=== PATIENT | female | born 1975 | race Caucasian/White ===

== ENCOUNTER 2019-04-27 10:32 | Emergency (ER) | payer OTHER ==
[~2019-04-27] VITALS: Ht 165.1 cm; Wt 175.0 kg
[2019-04-27] MEDS ORDERED: IV NORMAL SALINE 1,000ML 1,000 ML IV SCH (10:46)
[2019-04-27] MEDS ORDERED: HYDROmorphone PF 1 MG/ML DISP.SYRIN IV ONE (11:00)
[2019-04-27] MEDS ORDERED: diphenhydrAMINE 50 MG/ML VIAL IVP ONE (11:00)
[2019-04-27] MEDS ORDERED: METOCLOPRAMIDE HCL 10 MG/2 ML VIAL. IVP ONE (11:00)
[2019-04-27] MEDS ORDERED: SUMAtriptan SUCC 6 MG/0.5 ML VIAL SQ ONE (11:00)
--- NOTE | 2019-04-27 11:17 | PHYS DOC ---
Past History Past Medical History: Anxiety, Hypertension, Migraines Past Surgical History: Cholecystectomy, Hysterectomy Alcohol Use: Rarely Drug Use: None Adult General Chief Complaint Chief Complaint: HEADACHE HPI HPI Patient is a 44-year-old female who presents with complaint of headache for the last 4 days. Patient states that headache is one of her typical migraines but she has not been able to get the headache to resolve with her typical medications. She is on Topamax for her migraines and has also taken 3 Maxalt in the last 4 days. Patient rates her pain to be an 8-9 out of 10. She indicates that this is not her worst headache ever. She does indicate that she has nausea and has been gagging but has had no vomiting. She denies any chest pain or shortness breath. She also denies any fever. Headache is worsened with change of position. She also has photophobia.[] Review of Systems Review of Systems Constitutional: Denies fever or chills [] Eyes: Denies change in visual acuity, redness, or eye pain [] Respiratory: Denies cough or shortness of breath [] Cardiovascular: No additional information not addressed in HPI [] Integument: Denies rash or skin lesions [] Neurologic: Complains of headache without focal weakness or sensory changes [] All other systems were reviewed and found to be within normal limits, except as documented in this note. Current Medications Current Medications Current Medications Medications (Trade) Dose Ordered Sig/John Start Time Stop Time Status Last Admin Dose Admin Diphenhydramine HCl (Benadryl) 25 mg 1X ONCE 04/27/19 11:00 04/27/19 11:01 DC 04/27/19 11:01 25 MG Hydromorphone HCl (Dilaudid) 1 mg 1X ONCE 04/27/19 11:00 04/27/19 11:01 DC 04/27/19 11:02 1 MG Metoclopramide HCl (Reglan Vial) 10 mg 1X ONCE 04/27/19 11:00 04/27/19 11:01 DC 04/27/19 11:01 10 MG Sodium Chloride 1,000 ml @ 1,000 mls/hr Q1H 04/27/19 10:46 04/27/19 11:45 04/27/19 11:00 1,000 MLS/HR Sumatriptan Succinate (Imitrex) 6 mg 1X ONCE 04/27/19 11:00 04/27/19 11:01 DC 04/27/19 11:01 6 MG Allergies Allergies Allergies Coded Allergies Type Severity Reaction Last Updated Verified Sulfa (Sulfonamide Antibiotics) Allergy Unknown 04/27/19 Yes codeine Allergy Unknown 04/27/19 Yes promethazine Allergy Unknown 04/27/19 Yes trimethoprim Allergy Unknown 04/27/19 Yes Physical Exam Physical Exam Constitutional: Well developed, well nourished, no acute distress, non-toxic appearance. [] HENT: Normocephalic, atraumatic, bilateral external ears normal, oropharynx moist, no oral exudates, nose normal. [] Eyes: PERRLA, EOMI, conjunctiva normal, no discharge. [] Neck: Normal range of motion, no tenderness, supple, no stridor. [] Cardiovascular: Regular rate and rhythm[] Lungs & Thorax: Bilateral breath sounds clear to auscultation [] Abdomen: Bowel sounds normal, soft, no tenderness. [] Skin: Warm, dry, no erythema, no rash. [] Extremities: No tenderness, no cyanosis, no clubbing, ROM intact, no edema. [] Neurologic: Alert and oriented X 3, no focal deficits noted. [] Current Patient Data Vital Signs Vital Signs Date Time Temp Pulse Resp B/P (MAP) Pulse Ox O2 Delivery O2 Flow Rate FiO2 04/27/19 10:45 97.9 61 20 97 Room Air EKG EKG [] Radiology/Procedures Radiology/Procedures [] Course & Med Decision Making Course & Med Decision Making Pertinent Labs and Imaging studies reviewed. (See chart for details) [] Dragon Disclaimer Dragon Disclaimer This electronic medical record was generated, in whole or in part, using a voice recognition dictation system. Departure Departure: Impression: Primary Impression: Migraine Disposition: HOME, SELF-CARE Condition: STABLE Referrals: PCP,UNKNOWN (PCP) Patient Instructions: Migraine Headache Problem Qualifiers Primary Impression: Migraine Migraine type: unspecified Status migrainosus presence: without status migrainosus Intractability: not intractable Qualified Codes: G43.909 - Migraine, unspecified, not intractable, without status migrainosus BRADLEY SURESH Jr. DO Apr 27, 2019 11:17
[2019-04-27] MEDS ORDERED: KETOROLAC 30 MG/ML VIAL. IVP ONE (11:30)
[2019-04-27 11:48] VITALS: BP 116/59
== END 2019-04-27 12:22 | disposition home or self-care (01) ==
LOC: ER 10:32
DX: G43.909 Migraine, unspecified, not intractable, without status migrainosus (principal); F41.9 Anxiety disorder, unspecified; I10 Essential (primary) hypertension; Z88.2 Allergy status to sulfonamides; Z88.5 Allergy status to narcotic agent; Z88.1 Allergy status to other antibiotic agents; Z88.8 Allergy status to other drugs, medicaments and biological substances
CPT/HCPCS: 96372; 96374; 96375; 99284; J1170; J1200; J1885; J2765; J3030; J7030

== ENCOUNTER 2019-08-23 11:38 | Emergency (ER) | payer OTHER ==
[~2019-08-23] VITALS: Ht 162.6 cm; Wt 79.0 kg
[2019-08-23 11:48] VITALS: BP 113/78
--- NOTE | 2019-08-23 12:14 | PHYS DOC ---
Past History Past Medical History: Anxiety, Hypertension, Migraines Past Surgical History: Cholecystectomy, Hysterectomy Alcohol Use: Rarely Drug Use: None General Adult EDM: Chief Complaint: EYE PROBLEMS HPI: HPI: 44-year-old female presents with seeing spots. The patient woke up this morning and she noticed that she was seen small black speckles in her vision. She has tried closing each eye and she has different speckles in each eye. She has the most when she opens both eyes. It started out as 1 speckle in her left eye this morning but is increased to "feel". She denies any pain. She has a mild headache. Patient has a history of migraines but is not having a migraine at this time. She has high blood pressure but takes blood pressure medicine and is well controlled. She is never had this before. She denies any trauma or chance of foreign body in her eyes. She denies any other symptoms. Review of Systems: Review of Systems: Constitutional: Denies fever or chills Eyes: "spots" in visual field HENT: Denies nasal congestion or sore throat Respiratory: Denies cough or shortness of breath Cardiovascular: Denies chest pain or edema GI: Denies abdominal pain, nausea, vomiting, bloody stools or diarrhea : Denies dysuria Musculoskeletal: Denies back pain or joint pain Integument: Denies rash Neurologic: Denies headache, focal weakness or sensory changes Endocrine: Denies polyuria or polydipsia Lymphatic: Denies swollen glands Psychiatric: Denies depression or anxiety Heart Score: Risk Factors: Risk Factors: DM, Current or recent (<one month) smoker, HTN, HLP, family history of CAD, obesity. Risk Scores: Score 0 - 3: 2.5% MACE over next 6 weeks - Discharge Home Score 4 - 6: 20.3% MACE over next 6 weeks - Admit for Clinical Observation Score 7 - 10: 72.7% MACE over next 6 weeks - Early Invasive Strategies Allergies: Allergies: Allergies Coded Allergies Type Severity Reaction Last Updated Verified Sulfa (Sulfonamide Antibiotics) Allergy Unknown 04/27/19 Yes codeine Allergy Unknown 04/27/19 Yes promethazine Allergy Unknown 04/27/19 Yes trimethoprim Allergy Unknown 04/27/19 Yes Physical Exam: PE: Constitutional: Well developed, well nourished, no acute distress, non-toxic appearance. [] HENT: Normocephalic, atraumatic, bilateral external ears normal, oropharynx moist, no oral exudates, nose normal. [] Eyes: PERRLA, EOMI, conjunctiva normal, no discharge. [] Neck: Normal range of motion, no tenderness, supple, no stridor. [] Cardiovascular:Heart rate regular rhythm, no murmur [] Lungs & Thorax: Bilateral breath sounds clear to auscultation [] Abdomen: Bowel sounds normal, soft, no tenderness, no masses, no pulsatile masses. [] Skin: Warm, dry, no erythema, no rash. [] Back: No tenderness, no CVA tenderness. [] Extremities: No tenderness, no cyanosis, no clubbing, ROM intact, no edema. [] Neurologic: Alert and oriented X 3, normal motor function, normal sensory fu nction, no focal deficits noted. [] Psychologic: Affect normal, judgement normal, mood normal. [] Current Patient Data: Vital Signs: Vital Signs Date Time Temp Pulse Resp B/P (MAP) Pulse Ox O2 Delivery O2 Flow Rate FiO2 08/23/19 11:48 98.0 77 18 113/78 (90) 97 Room Air EKG: EKG: [] Radiology/Procedures: Radiology/Procedures: [] Course & Med Decision Making: Course & Med Decision Making Pertinent Labs and Imaging studies reviewed. (See chart for details) The patient's blood pressure is well controlled. All of her vitals are normal. I do not see any gross conditions with her physical exam. This sounds like she is having some vitreous detachment. I have advised that she follow-up with an eyewear manufacturing supervisor as soon as she is able. This is complicated under the current COVID-19 situation. I have advised that if her current condition is significantly increases, she may need to go to a facility with an disability aide available. She is welcome to come back here and we will attempt to transfer her to an appropriate facility. [] Dragon Disclaimer: Dragon Disclaimer: This electronic medical record was generated, in whole or in part, using a voice recognition dictation system. Departure Departure: Impression: Primary Impression: Vitreous detachment of both eyes Disposition: HOME, SELF-CARE Condition: STABLE Referrals: SIDRA SHERMAN MD (PCP) Patient Instructions: Eye - Vitreous Detachment REBECCA AVITIA DO Aug 23, 2019 12:14
== END 2019-08-23 12:27 | disposition home or self-care (01) ==
LOC: ER 11:38
DX: H43.813 Vitreous degeneration, bilateral (principal); G43.909 Migraine, unspecified, not intractable, without status migrainosus; I10 Essential (primary) hypertension; Z88.2 Allergy status to sulfonamides; Z88.5 Allergy status to narcotic agent; Z88.1 Allergy status to other antibiotic agents; Z88.8 Allergy status to other drugs, medicaments and biological substances
CPT/HCPCS: 99282